=== PATIENT | male | born 1985 | race Caucasian/White ===

== ENCOUNTER 2017-01-06 14:28 | Emergency (ER) | payer OTHER ==
[~2017-01-06] VITALS: Ht 172.7 cm; Wt 68.0 kg
[~2017-01-06 14:28] MED LIST: CYCL-319 PO; HYDR-3498 PO; IBUP-1542 PO; IBUP800T25 PO
[2017-01-06 14:49] VITALS: Ht 172.7 cm; Wt 68.0 kg
[2017-01-06] MEDS ORDERED: METOCLOPRAMIDE 10 MG INJ IV ONE (19:30)
[2017-01-06] MEDS ORDERED: DIPHENHYDRAMINE 50 MG INJ IV ONE (19:30)
[2017-01-06] MEDS ORDERED: SOD CHLORIDE 0.9% 500 ML IV ONE (19:30)
[2017-01-06] MEDS ORDERED: ONDA4TAB11 PO (19:54)
[2017-01-06] MEDS ORDERED: NAPR-688 PO (19:54)
--- NOTE | 2017-01-06 20:16 | ERD ---
ER Documentation Chief Complaint Date/Time DATE: 01/06/17 TIME: 19:57 Chief Complaint [place] N/V SINCE YESTERDAY HPI This 31-year-old male states that during a drive back from [place] and 5 hour car ride he began to develop nausea and a headache. Denies any trauma. This is a headache became came on slowly and he was approximately still there this morning. He has had nausea had one episode of vomiting. Headache is described as a whole head constant pain. He has no focal neurological deficits and does not feel weak or dizzy. ROS All systems reviewed and are negative except as per history of present illness. Medications Home Meds Active Scripts Naproxen* (Naproxen*) 500 Mg Tablet, 500 MG PO BID Y for PAIN, #14 TAB Prov:IWONAPINOTONE DICKENS 01/06/17 Ondansetron (Zofran Odt) 4 Mg Tab.rapdis, 4 MG PO Q6, #10 Prov:PINO BUSTILLO DO 01/06/17 Hydrocodone Bit-Acetaminophen* ([place]*) 5-325 Mg Tab, 1 TAB PO Q6 Y for PAIN, # 12 TAB Prov:NGOC CERVANTES MD 12/22/15 Ibuprofen* (Motrin*) 600 Mg Tab, 600 MG PO Q6, #20 TAB Prov:NGOC CERVANTES MD 12/22/15 Ibuprofen* (Motrin*) 800 Mg Tab, 800 MG PO Q6H Y for PAIN AND OR ELEVATED TEMP, #30 TAB Prov:ROMAN KELLEY NP 07/01/15 Cyclobenzaprine Hcl* (Cyclobenzaprine Hcl*) 10 Mg Tablet, 10 MG PO TID for 5 Days, TAB Prov:NGOC LEON PA-C 06/08/15 Allergies Allergies: Coded Allergies: No Known Allergy (Unverified , 07/01/15) PMhx/Soc History of Surgery: No Anesthesia Reaction: No Hx Neurological Disorder: No Hx Respiratory Disorders: No Hx Cardiac Disorders: No Hx Psychiatric Problems: No Hx Miscellaneous Medical Probl: No Hx Alcohol Use: No Hx Substance Use: Yes (marijuana) Hx Tobacco Use: No Physical Exam Vitals Vital Signs Date Time Temp Pulse Resp B/P Pulse Ox O2 Delivery O2 Flow Rate FiO2 01/06/17 14:49 98.3 71 18 133/75 95 Physical Exam Const: [] No distress Head: Atraumatic Eyes: Normal Conjunctiva, EOMI, PRL ENT: Normal External Ears, Nose and Mouth. Neck: Full range of motion..~ No meningismus. Skin: No petechiae or rashes Back: No midline or flank tenderness Ext: No cyanosis, or edema Neur: Awake and alert and oriented 3, cranial nerves II through XII intact, no cerebellar deficits, 5 out of 5 strength all extremities, normal gait e Psych: Normal Mood and Affect Results 24 hrs Current Medications Medications (Trade) Dose Ordered Sig/Devendra Route PRN Reason Start Time Stop Time Status Last Admin Dose Admin Diphenhydramine HCl (Benadryl) 12.5 mg ONCE ONCE IV 01/06/17 19:30 01/06/17 19:31 DC 01/06/17 19:25 Metoclopramide HCl 10 mg 10 mg ONCE ONCE IV 01/06/17 19:30 01/06/17 19:31 DC 01/06/17 19:25 Sodium Chloride (NS) 500 ml @ 500 mls/hr Q1H ONCE IV 01/06/17 19:30 01/06/17 20:29 01/06/17 19:25 Procedures/MDM Acute headache. I have low suspicion for subarachnoid hemorrhage because of the presentation of the headache. Patient's headache was also easily completely resolved in the emergency room with headache cocktail 12.5 mg of IV Benadryl, 10 mg of Reglan and 500 mL of IV fluid. He stated he had no further symptoms whatsoever. I am going to discharge him with a few Zofran ODT as well as a few naproxen if he ever has similar symptoms once again. Normal neurological exam discharge with primary care follow-up and return precautions to the ER. Departure Diagnosis: Primary Impression: Nausea Additional Impression: Headache Patient Instructions: Self-Care for Headaches, Nausea Referrals: COMMUNITY CLINICS YOU HAVE RECEIVED A MEDICAL SCREENING EXAM AND THE RESULTS INDICATE THAT YOU DO NOT HAVE A CONDITION THAT REQUIRES URGENT TREATMENT IN THE EMERGENCY DEPARTMENT. FURTHER EVALUATION AND TREATMENT OF YOUR CONDITION CAN WAIT UNTIL YOU ARE SEEN IN YOUR DOCTORS OFFICE WITHIN THE NEXT 1-2 DAYS. IT IS YOUR RESPONSIBILITY TO MAKE AN APPOINTMENT FOR FOLOW-UP CARE. IF YOU HAVE A PRIMARY DOCTOR --you should call your primary doctor and schedule an appointment IF YOU DO NOT HAVE A PRIMARY DOCTOR YOU CAN CALL OUR PHYSICIAN REFERRAL HOTLINE AT IF YOU CAN NOT AFFORD TO SEE A PHYSICIAN YOU CAN CHOSE FROM THE FOLLOWING FORMER[facility] [address] [facility] [address] [facility] [address] [facility] [address] [facility] [address] [facility]. [facility]. [address] Additional Instructions: Call your primary care doctor TOMORROW for an appointment during the next 1-2 days.See the doctor sooner or return here if your condition worsens before your appointment time. PINO BUSTILLO DO Jan 06, 2017 20:07
== END 2017-01-06 20:21 | disposition home or self-care (01) ==
LOC: FTE 14:28
DX: R11.0 Nausea (principal)
CPT/HCPCS: 96374; 96375; J1200; J2765; J7040; Z7502

== ENCOUNTER 2017-06-12 16:59 | Emergency (ER) | payer OTHER ==
[~2017-06-12] VITALS: Ht 172.7 cm; Wt 72.2 kg
[~2017-06-12 16:59] MED LIST changes: +NAPR-688 PO; +ONDA4TAB11 PO
[2017-06-12 17:05] VITALS: Ht 172.7 cm; Wt 72.2 kg
--- NOTE | 2017-06-12 17:49 | ERD ---
ER Documentation Chief Complaint Chief Complaint left foot pain/swelling x 30 minutes HPI this 32 YO male pt present to ED for evaluation of left foot injury, pt report that he was on his 2nd floor balcony when he saw his son babak , pt reports taht he jumped and landed on left foot, and right heel ROS All systems reviewed and are negative except as per history of present illness. Medications Home Meds Active Scripts Naproxen* (Naproxen*) 500 Mg Tablet, 500 MG PO BID Y for PAIN, #14 TAB Prov:PINO BUSTILLO DO 01/06/17 Ondansetron (Zofran Odt) 4 Mg Tab.rapdis, 4 MG PO Q6, #10 Prov:IWONAPINO DO 01/06/17 Hydrocodone Bit-Acetaminophen* ([place]*) 5-325 Mg Tab, 1 TAB PO Q6 Y for PAIN, # 12 TAB Prov:NGOC CERVANTES MD 12/22/15 Ibuprofen* (Motrin*) 600 Mg Tab, 600 MG PO Q6, #20 TAB Prov:NGOC CERVANTES MD 12/22/15 Ibuprofen* (Motrin*) 800 Mg Tab, 800 MG PO Q6H Y for PAIN AND OR ELEVATED TEMP, #30 TAB Prov:ROMAN KELLEY NP 07/01/15 Cyclobenzaprine Hcl* (Cyclobenzaprine Hcl*) 10 Mg Tablet, 10 MG PO TID for 5 Days, TAB Prov:NGOC LEON PA-C 06/08/15 Allergies Allergies: Coded Allergies: No Known Allergy (Unverified , 06/12/17) PMhx/Soc Medical and Surgical Hx: pt denies Medical Hx, pt denies Surgical Hx History of Surgery: No Anesthesia Reaction: No Hx Neurological Disorder: No Hx Respiratory Disorders: No Hx Cardiac Disorders: No Hx Psychiatric Problems: No Hx Miscellaneous Medical Probl: No Hx Alcohol Use: No Hx Substance Use: Yes (marijuana) Hx Tobacco Use: Yes Smoking Status: Current every day smoker Physical Exam Vitals Vital Signs Date Time Temp Pulse Resp B/P Pulse Ox O2 Delivery O2 Flow Rate FiO2 06/12/17 17:05 98.3 98 20 127/63 97 Vitals triage notes reviewed Physical Exam Const: Well-nourished well-appearing well-hydrated 32-year-old male patient obvious discomfort no acute distress Head: Atraumatic laceration, hematoma, or abrasion Eyes: Normal Conjunctiva PERRLA, EOMI ENT: Neck: Resp: Cardio: Abd: Skin: Back: Ext: Lower Extremity -bilateral: Skin: No laceration right foot obvious deformity, left foot is ecchymotic and edematous, venous deformity Compartments: Soft Motor: Abnormal range of motion of foot, and ankle, normal range of motion right foot, bilateral knees flex and extend nontender to palpation. Patient remains in wheelchair during examination. Sensation: Intact to light touch area, inferior, and lateral surfaces. Bones: Left foot first digit, tarsal, metatarsal tenderness, no fifth metatarsal tenderness, right calcaneus pain with palpation. Nontender pelvis/ knee/proximal tibia Joints: Foot edema, ecchymotic on dorsum Pulses/Perfusion: 2+ DP, Capillary refill < 2 seconds, please note that left foot is warm, capillary refill brisk, pulses difficult to palpate secondary to pain Neur: Awake and alert Psych: Normal Mood and Affect Results 24 hrs Current Medications Medications (Trade) Dose Ordered Sig/Devendra Route PRN Reason Start Time Stop Time Status Last Admin Dose Admin Acetaminophen/ Hydrocodone Bitart ([place] (10/325)) 1 tab ONCE ONCE PO 06/12/17 18:00 06/12/17 18:01 DC 06/12/17 17:56 Diltiazem HCl (Cardizem Iv) 20 mg ONCE ONCE IV 06/12/17 19:30 06/12/17 19:30 DC Procedures/MDM PROCEDURE: XR Left Ankle. CLINICAL INDICATION: jumped fron 2 story onto ground TECHNIQUE: AP, oblique and lateral views of the left ankle were performed. COMPARISON: None. FINDINGS: There is normal mineralization and alignment. No acute fracture or osseous lesion is identified. The joints are normal. The soft tissues are unremarkable. IMPRESSION: Unremarkable left ankle. Physician Rae Date Time Electronically viewed and signed by Physician Rae on 06/12/2017 18 :30 PROCEDURE: XR right foot. CLINICAL INDICATION: Trauma. The patient jumped for the second story onto ground TECHNIQUE: AP, lateral and oblique views of the right foot were obtained. COMPARISON: None. FINDINGS: Mineralization is within normal limits. No fracture or osseous lesion is identified. There is no evidence for dislocation. Joint spaces are preserved. The soft tissues are unremarkable. There is no evidence for radiopaque foreign body. RPTAT:HJJR IMPRESSION: Unremarkable right foot series. Physician Joie Date Time Electronically viewed and signed by Physician Joie on 06/12/2017 18:51 PROCEDURE: XR left foot. CLINICAL INDICATION: Post traumatic lateral left mid foot pain TECHNIQUE: AP, lateral and oblique views of the left foot were obtained. COMPARISON: None. FINDINGS: Mineralization is within normal limits. Subtle abnormal lucency involving the medial first metatarsal base is present with an increase in the distance between the first and second metatarsals. The second through fifth metatarsals are intact and normally aligned with the tarsal bones. The metatarsal phalangeal and interphalangeal joints are normal. There is normal alignment with the first metatarsal base with the medial cuneiform. Diffuse soft tissue swelling is present. There is no evidence for a radiopaque foreign body. IMPRESSION: Acute, closed, nondisplaced lateral first metatarsal base fracture most compatible with a Lisfranc fracture pattern. RPTAT:HJJR Physician Joie Date Time Electronically viewed and signed by Physician Joie on 06/12/2017 18:46 This 32-year-old male patient presents to emergency department for evaluation of bilateral foot pain. Patient reports that he was on the balcony of his second story house when he saw his child choking, patient reports he jumped off the balcony onto the ground injuring bilateral feet. Patient has not been able to ambulate since, crawled over to assist his son who had on a insects. Emergency room course includes history and physical exam, radiographic imaging positive for an acute nondisplaced lateral first metatarsal base fracture most compatible with a Lisfranc fracture pattern. Case discussed with supervising physician Dr. Bustillo who contacts imaging specialist Dr. Izquierdo who recommends outpatient therapy, instruction to place in a hard sole shoe, crutches, and follow-up with primary physician for referral to orthopedic consult. I have also told patient that I will include contact information in [place] [facility]. Should stay nonweightbearing until followed up with orthopedic consult, given CD of x-ray, also was told that additional x-rays will be taken at orthopedic this office. Discussed the possibility of surgery, the importance of following up related to location of fracture and the problems that it can cause with ambulating. Patient in waiting room along with significant other and son they verbalized understanding, agreed with plan of care. Patient will be discharged with Yuan Grover, placed in a hard sole or so shoe, crutches with crutch training, return to emergency department if unable to secure orthopedic consult, pain supersedes treatment, Patient is stable with no new complaints during ER course, clinically there is no current evidence to suggest foot ulcer, vascular occlusion, myelitis or any other emergent condition appearing to require further evaluation or hospitalization. I feel the patient is stable for discharge at this time. I have discussed results, examination findings, the treatment plan with the patient and family present prior to discharge. Indications for emergent reevaluation, side effects of medication were also discussed. All questions were answered. Patient verbalizes understanding and agrees with plan of care. Departure Diagnosis: Primary Impression: Foot fracture, left Encounter type: initial encounter Fracture type: closed Qualified Code: S92.902A - Closed fracture of left foot, initial encounter Patient Instructions: Fracture, Foot Additional Instructions: Thank you for for coming to the [facility] for your care today. Please ask your nurse or provider if you have questions about your care today and do not leave until all your questions have been answered. Please use any medications given as directed and follow-up with your doctor (or the doctor you were referred to) in the next 2-3 days. If you do not have a primary care doctor you may follow up at [place] [facility] [place] (listed below[place] You may also use motrin and tylenol as needed for fever and/or pain unless instructed otherwise by your provider or nurse. Indications for more urgent follow-up have been discussed, but you may return to the Emergency Department at ANY time for any worrisome or worsening symptoms. If you have abdominal pain, please know that no test or exam you received is perfect and you should follow up within 8 hours for continued pain. If you had any imaging studies today, such as an X-Ray or CT Scan, these studies will be reviewed later by a radiologist. You will be called if there are important findings that were not identified today, so make sure the contact information you provided at registration is correct. If you received any narcotic pain control medicine today, such as Vicodin, Morphine or Dilaudid, your coordination and judgment may be affected for a number of hours. Please do not drive or operate heavy machinery, and you may want someone to assist you at home. If you were given a prescription for narcotic medication, be aware that it is very addictive- use sparingly and only if necessary. ANNIE ESTEVES Jun 12, 2017 17:49
[2017-06-12] MEDS ORDERED: HYDROCODONE/APAP (10/325) TAB PO ONE (18:00)
--- NOTE | 2017-06-12 18:30 | RADRPT ---
PROCEDURE: XR Left Ankle. CLINICAL INDICATION: jumped fron 2 story onto ground TECHNIQUE: AP, oblique and lateral views of the left ankle were performed. COMPARISON: None. FINDINGS: There is normal mineralization and alignment. No acute fracture or osseous lesion is identified. The joints are normal. The soft tissues are unremarkable. IMPRESSION: Unremarkable left ankle. Physician Rae Date Time Electronically viewed and signed by Dylan Tapia Physician on 06/12/2017 18:30 ML/
--- NOTE | 2017-06-12 18:46 | RADRPT ---
PROCEDURE: XR left foot. CLINICAL INDICATION: Post traumatic lateral left mid foot pain TECHNIQUE: AP, lateral and oblique views of the left foot were obtained. COMPARISON: None. FINDINGS: Mineralization is within normal limits. Subtle abnormal lucency involving the medial first metatars al base is present with an increase in the distance between the first and second metatarsals. The s econd through fifth metatarsals are intact and normally aligned with the tarsal bones. The metatars al phalangeal and interphalangeal joints are normal. There is normal alignment with the first metata rsal base with the medial cuneiform. Diffuse soft tissue swelling is present. There is no evidence for a radiopaque foreign body. IMPRESSION: Acute, closed, nondisplaced lateral first metatarsal base fracture most compatible with a Lisfranc f racture pattern. RPTAT:HJJR Physician Joie Date Time Electronically viewed and signed by Physician Joie on 06/12/2017 18:46 /
--- NOTE | 2017-06-12 18:51 | RADRPT ---
PROCEDURE: XR right foot. CLINICAL INDICATION: Trauma. The patient jumped for the second story onto ground TECHNIQUE: AP, lateral and oblique views of the right foot were obtained. COMPARISON: None. FINDINGS: Mineralization is within normal limits. No fracture or osseous lesion is identified. There is no e vidence for dislocation. Joint spaces are preserved. The soft tissues are unremarkable. There is n o evidence for radiopaque foreign body. RPTAT:HJJR IMPRESSION: Unremarkable right foot series. Physician Joie Date Time Electronically viewed and signed by Physician Joie on 06/12/2017 18:51 /
[2017-06-12] MEDS ORDERED: DILTIAZEM 25 MG INJ IV ONE (19:30)
[2017-06-12] MEDS ORDERED: HYDR-906 PO (21:06)
[2017-06-12] MEDS ORDERED: NAPR-260 PO (21:07)
[2017-06-12] MEDS ORDERED: FAMO-96 PO (21:07)
== END 2017-06-12 21:38 | disposition home or self-care (01) ==
LOC: FTE 16:59
DX: S92.902A Unspecified fracture of left foot, initial encounter for closed fracture (principal); F17.210 Nicotine dependence, cigarettes, uncomplicated; X50.9XXA Other and unspecified overexertion or strenuous movements or postures, initial encounter; Y92.9 Unspecified place or not applicable
CPT/HCPCS: 73610; 73630; Z7502; Z7610